=== PATIENT | male | born 1970 | race Caucasian/White ===

== ENCOUNTER 2024-05-03 09:05 | Emergency (ER) | payer OTHER, SELFPAY ==
[2024-05-03 09:06] VITALS: BP 171/92; PULSE 82; RESP 20; TEMP 35.6; O2SAT 97; BMI 36.0
--- NOTE | 2024-05-03 09:15 | EKG12_ITS ---
Test Reason : SOB Blood Pressure : */* mmHG Vent. Rate : 82 BPM Atrial Rate : 82 BPM P-R Int : 180 ms QRS Dur : 86 ms QT Int : 386 ms P-R-T Axes : 7 65 48 degrees QTcB Int : 450 ms Normal sinus rhythm Normal ECG Confirmed by MADIHA SANCHEZ, JESSE ([id number]), editor greeting card SACHI CASTELAN ([id number]) on 05/04/2024 1:20:51 PM Referred By: Confirmed By: JESSE CLEARY MD
[2024-05-03 09:58] LABS: Anion Gap 9 (5-15); BUN 20 mg/dL (7-18); BUN/Creat Ratio 16.9 RATIO (10-20); Calcium,Total 9.3 mg/dL (8.5-10.1); Chloride 108 mmol/L (98-107); Creatinine, Serum 1.18 mg/dL (0.70-1.30); EST Glomerular Filtration Rate 68 mL/min (>60); Est Glom Filt Rate - Afr Amer 83 mL/min (>60); Estimated Creatinine Clearance 93.14 ml/min; Glucose 110 mg/dL (74-106); Potassium 4.1 mmol/L (3.5-5.1); Sodium Level 140 mmol/L (136-145); Troponin-I HS (w/2H Reflex) 5 pg/mL (3.0-78.0)
[2024-05-03 10:06] LABS: Hematocrit 44.3 % (40-54); Hemoglobin 15.9 g/dL (13.0-16.5); Mean Corp Hgb Conc 35.9 g/dL (32-36); Mean Corpuscular Hgb 30.7 pg (27.0-32.0); Mean Corpuscular Volume 85.5 fL (80-94); Mean Platelet Vol. 9.6 fl (6.2-12.0); Platelet Count 272 K/mm3 (150-450); RBC Distribution Width CV 12.3 % (11.6-14.6); RBC Distribution Width SD 38.4 fl (35.1-43.9); Red Blood Count 5.18 M/mm3 (4.6-6.2); White Blood Count 6.8 K/mm3 (4.4-11.0)
[2024-05-03 10:41] VITALS: BP 154/98; PULSE 75; RESP 19; O2SAT 97
--- NOTE | 2024-05-03 11:19 | EX.ED.DYSGE1 ---
HPI History of Present Illness Chief Complaint: Palpitations Detail of Chief Complaint: Rapid heart rate of 190 and Informant: patient Onset/Context/Timing Onset: Today Context: Sudden Onset Timing: Intermittent (Duration 1 minute) Quality: Palpitations, heart rate 190, lightheaded, diaphoresis and nausea Location: Was at work. Current Severity: Gone Maximum Severity: Moderate Worsened by: Nothing Relieved by: Nothing Associated Symptoms Associated Symptoms: Documented Narrative Narrative: patient is a 53-year-old male. History of coronary artery disease. He lives in [place]. He has seen Dr. Austen Ross. He had a stent placed approximately 5 years ago. He is on metoprolol 50 mg once daily. Diamond episode of rapid heart rate September 2023. He did not follow-up for was referred to EP cardiology. Patient was at work. He was sitting he went to get a document. Symptoms started. Lasted approximately a minute. He was lightheaded, diaphoretic with nausea and mild shortness of breath. He had no chest discomfort. He has no history of VTE. [place] leg pain, swelling discoloration. Prior similar symptoms: Yes (September 2023. He did notify Dr. John.) Recent Illness/Hospitalization: No PFSH PFSH Medical History (Updated 05/03/24 @ 13:[address] Tao Alcaraz MD) Elevated cholesterol Allergy/AdvReac Type Severity Reaction Status Date / Time No Known Allergies Allergy Verified 05/03/24 09:07 Surgical History (Updated 05/03/24 @ 13:[address] Tao Alcaraz MD) Status post insertion of drug-eluting stent into right coronary artery for coronary artery disease Social History Smoking Status: Never smoker [facility] ED Constitutional Constitutional ED: Reports other Details: Diaphoresis during event ; Denies chills, fever(s), subjective, sweats or weight loss Eyes Eyes: Denies blurry vision or change in vision ENT ENT ED: Denies ear pain, rhinorrhea or sore throat Cardiovascular Cardiovascular: Reports palpitations, racing heartbeat and other Details: Orthostatic lightheadedness ; Denies chest pain, orthopnea or paroxysmal nocturnal dyspnea Respiratory/Chest Respiratory/Chest: Reports dyspnea; Denies cough, dyspnea on exertion, orthopnea or paroxysmal nocturnal dyspnea Gastrointestinal Gastrointestinal: Reports nausea; Denies abdominal pain, diarrhea or vomiting Musculoskeletal Musculoskeletal: Denies arthralgias or myalgias Integumentary Denies rash Neurologic Neurologic: Denies paresthesias or weakness Hematologic/Lymphatic Hematologic/Lymphatic: Reports systems reviewed and no addt'l complaints, except as documented EXAM Physical Exam Const Vital Signs: 05/03/24 09:06 05/03/24 10:41 05/03/24 10:42 Temperature 96.1 F L Temperature Source Temporal Pulse Rate 82 75 Respiratory Rate 20 H 19 H Respiratory Effort Normal Non-Labored Blood Pressure 171/92 H 154/98 H Blood Pressure Mean 118 116 Pulse Ox 97 97 Oxygen Delivery Method Room Air Room Air 05/03/24 11:28 05/03/24 12:27 Temperature Temperature Source Pulse Rate 70 63 Respiratory Rate 24 H 15 Respiratory Effort Blood Pressure 130/89 H 147/94 H Blood Pressure Mean 102 111 Pulse Ox 98 99 Oxygen Delivery Method Room Air Room Air Vitals are marked for an elevated blood pressure. Positive well nourished and well developed Constitutional Narrative: BMI is 36.0. General Appearance ED: well developed; Negative for pallor HEENT Reports moist mucous membranes HEENT Narrative: Head is atraumatic normocephalic. Ears normal. Nares patent Eyes PERRL and EOMs intact bilaterally General Eye ED: Negative for pale conjunctiva or scleral icterus Neck no lymphadenopathy, supple and no JVD Neck Narrative: Trachea is midline. There is no carotid bruits. Resp normal respiratory effort and clear to auscultation bilaterally Cardio regular rate, regular rhythm, S1 normal heart sound, S2 normal heart sound and no murmurs GI normal to inspection, nondistended, normoactive bowel sounds, non-tender, non-distended and no masses; Negative for hepatosplenomegaly Extremity normal to inspection General Extremety ED: Negative for edema or tenderness General Extremity: Negative for edema Neuro oriented x3 and CN's II-XII intact bilaterally Sensorium / Orientation: alert Psych mental status grossly normal Skin no rashes or lesions noted, no wounds and skin turgor normal General Skin Exam: Negative for jaundice or pallor MDM MDM MDM Narrative Medical decision making narrative: Patient with heart rate of 190 documented on Apple Watch. EKG was obtained to determine if there is any evidence of WPW or Le being long [place] syndrome or preexcitation syndrome findings. Troponin was obtained with repeat 2-hour troponin. Electrolyte panel was obtained to assess potassium specifically. History & Record Review Additional record(s) reviewed:: Prior outpatient record Lab Data Attestation: I reviewed the patient's lab results. Lab results narrative: CBC without differential is normal. Basic metabolic panel is unremarkable. First troponin is normal at 5. Labs: Laboratory Results - last 24 hr 05/03/24 05/03/24 09:23 11:36 WBC 6.8 RBC 5.18 Hgb 15.9 Hct 44.3 MCV 85.5 MCH 30.7 MCHC 35.9 RDW Std Deviation 38.4 RDW Coeff of Roslyn 12.3 Plt Count 272 MPV 9.6 Sodium 140 Potassium 4.1 Chloride 108 H Carbon Dioxide 23.0 Anion Gap 9 BUN 20 H Creatinine 1.18 Estim Creat Clear Calc 93.14 Est GFR (MDRD) Af Amer 83 Est GFR (MDRD) Non-Af 68 BUN/Creatinine Ratio 16.9 Glucose 110 H Calcium 9.3 Troponin I High Sens 5 4 EKG Initial EKG: Attestation: I personally reviewed and interpreted this EKG as follows: Interpretation: Sinus Rhythm (Rate is 82. EKG is normal. HI interval is 180 ms. QS duration 86 ms per QT duration 386 ms. [place] is normal.) Management Discussion w/another healthcare provider: [employer] [facility] (Spoke with Dr. John's nurse practitioner since he is on vacation. The patient is scheduled have a visit May 09. Will increase metoprolol to 100 mg. She will make referral to EP cardiology.) Treatment and Re-Evaluation :: He was informed of his EKG and laboratory studies and need for repeat troponin. Dr. Austen John was paged by community living coach. Discharge Plan Triage Chief Complaint: Palpitations ED Provider: Tao Alcaraz Dx/Rx/DC Orders Clinical Impression: Paroxysmal supraventricular tachycardia, Status post insertion of drug-eluting stent into right coronary artery for coronary artery disease, Elevated cholesterol, Elevated blood-pressure reading without diagnosis of hypertension, Orthostatic lightheadedness Instructions: ED Understanding Supraventricular Tachycardia (SVT) Primary Care Provider: Fred Milian Referrals: Fred Milian MD [Primary Care Provider] - Austen John MD [Non-Staff] - Keep Paolo appointment Activity Restrictions/Additional Instructions: Increase metoprolol to 2 tablets a day. They are to be taken at the same time. Your blood pressure has been elevated during your entire ER stay. This will need to be checked by your primary care physician or Dr. John's nurse practitioner within the next 1 to 2 weeks. Print Language: Burkinan Disposition Disposition: Home, Self Care
[2024-05-03 11:28] VITALS: BP 130/89; PULSE 70; RESP 24; O2SAT 98
[2024-05-03 11:31] LABS: Reflex Troponin-HS? (from REC) Y
[2024-05-03 12:00] LABS: Troponin-I HS 4 pg/mL (3.0-78.0)
[2024-05-03 12:27] VITALS: BP 147/94; PULSE 63; RESP 15; O2SAT 99
[2024-05-03 13:00] VITALS: BP 134/78; PULSE 78; RESP 16; TEMP 36.6; O2SAT 99
== END 2024-05-03 13:59 | disposition home or self-care (01) ==
PROVIDERS: Emergency Provider Emergency Medicine; PCP Internal Medicine; Visit Provider Emergency Medicine
DX: I47.10 Supraventricular tachycardia, unspecified (principal); R03.0 Elevated blood-pressure reading, without diagnosis of hypertension; R00.2 Palpitations; R42 Dizziness and giddiness; R06.02 Shortness of breath; E78.00 Pure hypercholesterolemia, unspecified; I25.10 Atherosclerotic heart disease of native coronary artery without angina pectoris; Z79.899 Other long term (current) drug therapy; Z95.5 Presence of coronary angioplasty implant and graft
CPT/HCPCS: 80048; 84484; 85027; 93005; 99284; A4216